=== PATIENT | female | born 1950 | race Caucasian/White ===

== ENCOUNTER 2017-03-13 15:27 | Inpatient (IN) | payer MEDICARE, BC ==
[2017-03-13] MEDS ORDERED: Ondansetron 4 MG/2 ML SDV IV PRN (16:19)
[2017-03-13] MEDS ORDERED: Temazepam 15 MG Cap PO PRN (16:19)
[2017-03-13] MEDS ORDERED: Docusate Sodium 100 MG Cap PO PRN (16:19)
[2017-03-13] MEDS ORDERED: fentaNYL 100 MCG/2 ML SDV IVPUSH PRN (16:19)
[2017-03-13] MEDS ORDERED: Albuterol 8 GM Inhaler INH PRN (16:28)
[2017-03-13] MEDS ORDERED: CAFFEINE PO PRN (16:28)
[2017-03-13] MEDS ORDERED: BUTALBITAL PO PRN (16:28)
[2017-03-13] MEDS ORDERED: Formoterol/Mometasone 200-5 MCG 8.8 GM Inhaler IH PRN (16:28)
[2017-03-13] MEDS ORDERED: ASPIRIN PO PRN (16:28)
[2017-03-13] MEDS ORDERED: Iopamidol 612 MG/ML 100 ML Bottle IVPUSH ONE (16:33)
[2017-03-13] MEDS ORDERED: Levofloxacin/Dextrose 5%-Water 500 MG in Premix Bag 1 BAG IV SCH (17:00)
[2017-03-13] MEDS: Lactated Ringers 1,000 ML IV SCH (17:03)
[2017-03-13] MEDS: Acetaminophen 325 MG Tab PO PRN (17:03)
[2017-03-13] MEDS: metroNIDAZOLE/Normal Saline 500 MG in Premix Bag 1 BAG IV SCH (17:04)
[2017-03-13] MEDS ORDERED: diphenhydrAMINE 25 MG Cap PO SCH (20:00)
[2017-03-13] MEDS ORDERED: Enoxaparin 30 MG/0.3 ML Syringe SUBCUT SCH (20:00)
[2017-03-13] MEDS ORDERED: Acetaminophen 325 MG Tab PO SCH (20:00)
[2017-03-13] MEDS ORDERED: Simvastatin 20 MG Tab PO SCH (20:00)
[2017-03-13] MEDS: Albuterol/Ipratropium 3.0-0.5 MG/3 ML Neb Soln NEB SCH (21:28)
[2017-03-14] MEDS: metroNIDAZOLE/Normal Saline 500 MG in Premix Bag 1 BAG IV SCH ×2 (00:10→07:30)
[2017-03-14] MEDS: Lactated Ringers 1,000 ML IV SCH (03:53)
[2017-03-14] MEDS: Acetaminophen 325 MG Tab PO PRN (07:41)
[2017-03-14] MEDS ORDERED: Hydrochlorothiazide 12.5 MG Cap PO SCH (08:00)
[2017-03-14] MEDS ORDERED: Non-Formulary Medication 1 Each (Losartan/Hydrochlorothiazide 1 TAB) PO SCH (08:00)
[2017-03-14] MEDS ORDERED: Potassium Gluconate (99 MG) 2 MEQ Tab PO SCH (08:00)
[2017-03-14] MEDS ORDERED: Losartan 25 MG Tab PO SCH (08:00)
--- NOTE | 2017-03-14 10:04 | PN ---
DATE: 03/14/2017 S: Mildred Ying came in with moderately severe abdominal pain, vomiting. I made the diagnosis of probable diverticulitis. I did do a CT scan on her last night, which showed some diverticula, but no significant diverticulitis. O: On examination today, abdomen is soft, bowel sounds are back to normal. No further nausea or vomiting. ASSESSMENT: PROBABLE MESENTERIC ADENITIS. P: Continue IV antibiotics and re-evaluate her today. IVETTE/KATERINE /[id number]
[2017-03-14] MEDS: Albuterol/Ipratropium 3.0-0.5 MG/3 ML Neb Soln NEB SCH (10:33)
[2017-03-14 12:27] VITALS: BP 113/71
--- NOTE | 2017-03-15 07:02 | DISCH ---
HOSPITAL COURSE: Mildred Ying came in with moderate to severe abdominal pain, nausea, vomiting yesterday with diagnosis of probable diverticulitis, was admitted to the hospital and started on IV antibiotics. Responded dramatically. At the time of discharge, bowel sounds were good. They were hypoactive yesterday. She was eating a regular diet and felt good. CT of the abdomen showed no diverticulitis and showed significant peripheral vascular disease. So I think she probably had a mesenteric adenitis that is now resolving rapidly from IV antibiotics. DISPOSITION: The patient now discharged home. DISCHARGE INSTRUCTIONS: We will see her back in the clinic in 1 week. DISCHARGE MEDICATIONS: Home medications plus Ceftin 250 p.o. b.i.d. for 7 days. DISCHARGE DIAGNOSIS: 1. MESENTERIC ADENITIS. 2. HYPERLIPIDEMIA. 3. HYPERTENSION. VENITA /[id number]
== END 2017-03-14 14:45 | disposition home or self-care (01) | DRG 394 ==
LOC: CC.MS 15:27 → UNDOADMIN 15:27 → CC.MS 16:19
PROVIDERS: ADMIT General Practice; ATTEND General Practice
DX: I88.0 Nonspecific mesenteric lymphadenitis (principal); K57.92 Diverticulitis of intestine, part unspecified, without perforation or abscess without bleeding; I10 Essential (primary) hypertension; E78.00 Pure hypercholesterolemia, unspecified; E04.1 Nontoxic single thyroid nodule; Z79.899 Other long term (current) drug therapy
CPT/HCPCS: 36415; 74177; 80048; 80053; 81001; 83735; 84443; 85025; 86140; 94640; A9270-GY; J1650; J1956; J2405; J7120; Q9967

== ENCOUNTER 2019-01-03 07:36 | Emergency (ER) | payer MEDICARE, BC ==
[2019-01-03 07:42] VITALS: PULSE 79
[2019-01-03 08:05] VITALS: BP 150/95
[2019-01-03] MEDS ORDERED: Diphtheria,Pertussis(Acell),Tetanus Vaccine 0.5 ML Syringe IM ONE (08:05)
--- NOTE | 2019-01-03 08:19 | EDM.PDOC ---
ED HPI GENERAL MEDICAL PROBLEM - General Chief Complaint: Laceration Stated Complaint: WOUND Time Seen by Provider: 01/03/19 08:10 Source of Information: Reports: Patient History Limitations: Reports: No Limitations - History of Present Illness INITIAL COMMENTS - FREE TEXT/NARRATIVE: Patient presents to ER with a laceration/puncture wound to her right index finger. Was cutting up watermelon and slipped with the knife. Has small puncture wound but knife did cut completely through the tip. Patient denies much pain with this. Has good range of motion. She questions if possible to avoid sutures. Due to update Tdap Onset: Today, Sudden Duration: Minutes: Location: Reports: Upper Extremity, Right Quality: Reports: Ache, Dull Severity: Mild Context: Reports: Trauma Associated Symptoms: Reports: No Other Symptoms Treatments INSPECTOR SHELLS: Reports: Dressing(s) Right Finger-Index Pain Score (Numeric/FACES): 2 - Related Data Allergies Allergy/AdvReac Type Severity Reaction Status Date / Time cefuroxime axetil tabs Allergy Nausea Uncoded 01/03/19 07:43 Home Meds: Home Meds Acetaminophen/Diphenhydramine [Tylenol Pm Ex-Strength Caplet] 1 tab PO BEDTIME 06/16/16 [History] Albuterol [Ventolin 2 MG/5 ML] 2 puff IH Q4H PRN 06/16/16 [History] Budesonide/Formoterol Fumarate [Symbicort 160-4.5 Mcg Inhaler] 2 puff IH BID [History] Cholecalciferol (Vitamin D3) [Vitamin D3] 5,000 unit PO DAILY 06/16/16 [History] Ipratropium/Albuterol Sulfate [Iprat-Albut 0.5-3(2.5) MG/3 ML] 1 vial NEB BID [History] Multivitamin [Multi-Day Vitamins] 1 each PO DAILY 06/16/16 [History] Potassium 75 mg PO DAILY 06/16/16 [History] Ubidecarenone [Coq-10] 300 mg PO DAILY 06/16/16 [History] Butalbital/Aspirin/Caffeine [Fiorinal 50-325-40 MG] 1 - 2 tab PO TID PRN [History] L.acidoph,Paracasei, B.lactis [Probiotic] 1 caplet PO DAILY 03/13/17 [History] Losartan/Hydrochlorothiazide [Losartan-HCTZ 50-12.5 MG] 1 tab PO DAILY 03/13/17 [History] Alendronate Sodium 70 mg PO WEEKLY 11/02/17 [History] Ascorbic Acid [Vitamin C] 1,000 mg PO DAILY 11/02/17 [History] Magnesium Oxide/Mag AA Chelate [Magnesium] 300 mg PO BEDTIME 11/02/17 [History] Rosuvastatin Calcium 20 mg PO DAILY 11/02/17 [History] Past Medical History Cardiovascular History: Reports: High Cholesterol, Hypertension Respiratory History: Reports: Bronchitis, Recurrent, COPD Gastrointestinal History: Reports: Diverticulosis, PUD Genitourinary History: Reports: None Neurological History: Reports: None Endocrine/Metabolic History: Reports: None Hematologic History: Reports: Blood Transfusion(s) - Infectious Disease History Infectious Disease History: Reports: MRSA - Past Surgical History Cardiovascular Surgical History: Reports: None Respiratory Surgical History: Reports: None GI Surgical History: Reports: Cholecystectomy, Colonoscopy, EGD, Small Bowel Other GI Surgeries/Procedures: cauterization of ulcer Female Surgical History: Reports: Breast Reduction, Tubal Ligation Endocrine Surgical History: Reports: Thyroid Biopsy Neurological Surgical History: Reports: Other (See Below) Other Neurological Surgeries/Procedures: cyst in spinal canal, surgery to remove cyst Social & Family History - Family History Family Medical History: Noncontributory - Tobacco Use Smoking Status *Q: Former Smoker Used Tobacco, but Quit: Yes Month/Year Tobacco Last Used: 8 yrs ago - Caffeine Use Caffeine Use: Reports: Coffee - Recreational Drug Use Recreational Drug Use: No ED ROS GENERAL - Review of Systems Review Of Systems: ROS reveals no pertinent complaints other than HPI. ED EXAM, SKIN/RASH Exam: See Below Exam Limited By: No Limitations General Appearance: Alert, WD/WN, No Apparent Distress Neurological: Alert, Oriented Skin: Warm, Wound/Incision Location, Skin: Upper Extremity, Right Characteristics: Linear ED SKIN PROCEDURES - Laceration/Wound Repair Right Digit - 2nd (Index) Lac/Wound length In cm: 0.7 Appearance: Subcutaneous, Linear Distal NVT: Neuro & Vascular Intact Skin Prep: Other (saf-clens) Exploration/Debridement/Repair: Wound Explored Closed with: Dermabond, Steri-Strips Sterile Dressing Applied: Provider Tetanus Status Addressed: Yes Complications: No Course - Vital Signs Last Recorded V/S: Last Vital Signs Temp 97.9 F 01/03/19 07:38 Pulse 79 01/03/19 07:38 Resp 16 01/03/19 07:38 BP 150/95 H 01/03/19 08:04 Pulse Ox 98 01/03/19 07:38 - Orders/Labs/Meds Orders: Active Orders 24 hr Category Date Time Status Vaccines to be Administered [RC] PER UNIT ROUTINE Care 01/03/19 08:05 Active Meds: Medications Discontinued Medications Generic Name Dose Route Start Last Admin Trade Name Evette PRN Reason Stop Dose Admin Diphtheria/Tetanus/Acell Pertussis 0.5 ml 01/03/19 08:05 01/03/19 08:24 Adacel IM 01/03/19 08:06 0.5 ml .ONCE ONE Administration Departure - Departure Time of Disposition: 08:18 Disposition: Home, Self-Care 01 Condition: Good Clinical Impression: Broken skin, Laceration of finger - Discharge Information *PRESCRIPTION DRUG MONITORING PROGRAM REVIEWED*: No *COPY OF PRESCRIPTION DRUG MONITORING REPORT IN PATIENT KATTY: No Instructions: Puncture Wound, [id number] Forms: ED Department Discharge Additional Instructions: 1. Keep wound clean and dry 2. Allow steri strips to fall off 3. Watch for symptoms of infection ie. redness, increased pain, drainage 4. Follow up if concerns. - My Orders Last 24 Hours: My Active Orders 01/03/19 08:05 Vaccines to be Administered [RC] PER UNIT ROUTINE - Assessment/Plan Last 24 Hours: My Active Orders 01/03/19 08:05 Vaccines to be Administered [RC] PER UNIT ROUTINE
== END 2019-01-03 08:32 | disposition home or self-care (01) ==
LOC: CC.ED 07:36
DX: S61.210A Laceration without foreign body of right index finger without damage to nail, initial encounter (principal); Z23 Encounter for immunization; Z87.891 Personal history of nicotine dependence; Z79.899 Other long term (current) drug therapy; E78.00 Pure hypercholesterolemia, unspecified; I10 Essential (primary) hypertension; W26.0XXA Contact with knife, initial encounter
CPT/HCPCS: 12001; 90471; 90715; 99282; 99283

== ENCOUNTER → 2019-04-05 | Day surgery (SDC) | payer MEDICARE, BC ==
[~2019-04-05] MED LIST: Glycopyrrolate 0.2 MG/ML SDV IVPUSH ONE; Lactated Ringers 1,000 ML IV SCH; Propofol 200 MG/20 ML SDV IV ONE
[2019-04-05 10:17] VITALS: BP 146/86; PULSE 86
--- NOTE | 2019-04-05 14:47 | OR ---
DATE OF OPERATION: 04/05/2019 PREOPERATIVE DIAGNOSIS: EPIGASTRIC PAIN AND GASTROESOPHAGEAL REFLUX DISEASE. POSTOPERATIVE DIAGNOSIS: EPIGASTRIC PAIN AND GASTROESOPHAGEAL REFLUX DISEASE. SURGEON: Demetrius Morrison MD PROCEDURE: EGD WITH BIOPSIES X3, JANETH. ANESTHESIA: MAC. COMPLICATIONS: None. SPECIMEN: 1. Antral biopsy x2. 2. JANETH. 3. Distal esophageal biopsy x1. FINDINGS: 1. Full-length EGD. 2. Mild and chronic appearing antral gastritis without ulceration or erosion. 3. Spontaneous GERD without any obvious esophagitis, Johnson's changes, or stricturing. RECOMMENDATIONS: The patient's symptoms seem to have gotten worse and she started alendronate. I would recommend stopping her Fosamax for now and following up with Dr. Herrera for path reports. INDICATIONS: The patient has been having ongoing and worsening dyspepsia over the last 6 months, really severe over the last month or 2 in the form of epigastric discomfort, dyspepsia, and reflux. Dr. Herrera sent her for diagnostic EGD. DESCRIPTION OF PROCEDURE: The patient was prepped and draped, placed in the left lateral decubitus position. A lubricated Olympus gastroscope was inserted over a bit, advanced to cricopharyngeus area, and easily intubated in the esophagus. The esophageal lining was benign in its entire course. The Z-line is crisp and sharp at about 39 cm. There is no hernia present. There was some spontaneous reflux. No obvious distal esophagitis, stricturing, ulceration, or Johnson's changes. There was 1 short segment that may be an early Johnson's change. I did do a biopsy of it. The scope was advanced into the stomach through the pylorus, into the second portion of the duodenum. This and the duodenal bulb were benign. The scope was brought back into the stomach and retroflexed. The upper fundus and cardia were completely unremarkable. Upon straightening, the rest of the fundus was benign. The antrum shows changes of chronic gastritis. There is no acute ulceration, erosion, or active lesions. Two biopsies were taken along with CLOtest. Air was then suctioned. Scope was removed without complication. JASON/KATERINE /[id number] CC: Uri Herrera MD [address] [place] [address]
== END ==
LOC: CC.SDS 08:30
PROVIDERS: ATTEND Family Medicine
DX: K21.0 Gastro-esophageal reflux disease with esophagitis (principal); K29.50 Unspecified chronic gastritis without bleeding; K31.89 Other diseases of stomach and duodenum; I25.10 Atherosclerotic heart disease of native coronary artery without angina pectoris; R19.4 Change in bowel habit; Z87.891 Personal history of nicotine dependence; Z79.899 Other long term (current) drug therapy
CPT/HCPCS: 00731; 43239; 87081; J2704; J3490; J7120

== ENCOUNTER → 2019-11-01 | Day surgery (SDC) | payer MEDICARE, BC ==
[~2019-11-01] MED LIST changes: -Glycopyrrolate 0.2 MG/ML SDV IVPUSH ONE
[2019-11-01 12:41] VITALS: BP 142/97; PULSE 72
--- NOTE | 2019-11-01 13:08 | OR ---
DATE OF OPERATION: 11/01/2019 PREOPERATIVE DIAGNOSIS: GASTROESOPHAGEAL REFLUX DISEASE WITH DYSPHAGIA. POSTOPERATIVE DIAGNOSIS: GASTROESOPHAGEAL REFLUX DISEASE WITH DYSPHAGIA. SURGEON: Demetrius Morrison MD PROCEDURE: FULL-LENGTH DIAGNOSTIC EGD. ANESTHESIA: MAC. COMPLICATIONS: None. SPECIMEN: None. FINDINGS: 1. Full-length EGD. 2. Small hiatal hernia with spontaneous GERD. 3. No distal esophagitis, stricturing, ulceration, or Johnson's changes. RECOMMENDATIONS: Aggressive proton pump therapy for symptomatic control. INDICATIONS: The patient has been having some occasional dysphagia, it sounds more like upper chest cricopharyngeal area. Dr. Herrera sent her for diagnostic EGD. DESCRIPTION OF PROCEDURE: The patient was prepped and draped, placed in the left lateral decubitus position. A lubricated Olympus gastroscope was inserted over a bit, advanced to cricopharyngeus area and easily intubated in the esophagus. Saw no real signs of prominence of the cricopharyngeus region. The scope easily was intubated in the esophagus, passed distally. The esophageal lining was benign in its entire course. The Z-line was crisp and sharp around 38 cm. There was a small hernia present with some spontaneous reflux, but no distal esophagitis, stricturing, ulceration, or Johnson's changes. The scope was advanced into the stomach, through the pylorus, and into the second portion of the duodenum. This and the duodenal bulb were benign. The scope was brought back into the stomach and retroflexed. At this time, the patient got significantly tachycardic, she had a tachy dysrhythmia up to the 160s. We straightened the scope, took a very adequate but brief look at the antrum and fundus, and felt it was for the patient's safety safer to remove the scope. Briefly, though I did not see any obvious lesions in the stomach such as signs of peptic ulcer disease, polyp, mass, or other lesions. No CLOtest was obtained. Air was suctioned from the stomach and the scope was removed safely without complication. The patient was stable in the recovery room. JASON/KATERINE /[id number]
== END ==
LOC: CC.SDS 09:51
PROVIDERS: ATTEND Family Medicine
DX: K21.9 Gastro-esophageal reflux disease without esophagitis (principal); K44.9 Diaphragmatic hernia without obstruction or gangrene; R00.0 Tachycardia, unspecified; I10 Essential (primary) hypertension; E78.5 Hyperlipidemia, unspecified; J44.9 Chronic obstructive pulmonary disease, unspecified; Z87.891 Personal history of nicotine dependence; E78.00 Pure hypercholesterolemia, unspecified; Z88.1 Allergy status to other antibiotic agents; Z79.899 Other long term (current) drug therapy; Z79.51 Long term (current) use of inhaled steroids
CPT/HCPCS: 00731; 43235; J2704; J7120

== ENCOUNTER 2020-07-02 08:47 | Emergency (ER) | payer MEDICARE, BC ==
[2020-07-02] MEDS ORDERED: cloNIDine 0.1 MG Tab PO STA (09:16)
--- NOTE | 2020-07-02 09:18 | EDM.PDOC ---
ED HPI GENERAL MEDICAL PROBLEM - General Chief Complaint: General Stated Complaint: LT ARM PAIN Time Seen by Provider: 07/02/20 09:05 Source of Information: Reports: Patient, RN History Limitations: Reports: No Limitations - History of Present Illness INITIAL COMMENTS - FREE TEXT/NARRATIVE: States that she hasn't felt well since last evening. Feels jittery. BP has been up. Today she had some pain in the left shoulder and tingling into left arm. No midsternal chest pain. No nausea. No headache or unilateral weakness. States that she didn't feel well today. No headaches. Has had some palpitations. No cough or SOB with it. Onset Date: 07/01/20 Location: Reports: Generalized - Related Data Allergies Allergy/AdvReac Type Severity Reaction Status Date / Time cefuroxime axetil tabs AdvReac Nausea Uncoded 07/02/20 09:03 Home Meds: Home Meds Albuterol [Ventolin 2 MG/5 ML] 2 puff IH Q4H PRN 06/16/16 [History] Budesonide/Formoterol Fumarate [Symbicort 160-4.5 Mcg Inhaler] 2 puff IH BID 06/16/16 [History] Cholecalciferol (Vitamin D3) [Vitamin D3] 5,000 unit PO DAILY 06/16/16 [History] Potassium 99 mg PO DAILY 06/16/16 [History] Ubidecarenone [Coq-10] 100 mg PO DAILY 06/16/16 [History] L.acidoph,Paracasei, B.lactis [Probiotic] 1 caplet PO DAILY 03/13/17 [History] Ascorbic Acid [Vitamin C] 1,000 mg PO DAILY 11/02/17 [History] Rosuvastatin Calcium 20 mg PO DAILY 11/02/17 [History] Omeprazole Magnesium [Prilosec Otc] 20 mg PO DAILY 04/03/19 [History] Psyllium Husk (With Sugar) [Metamucil Powder] 1 tsp PO DAILY PRN 04/03/19 [History] norethindrone ac-eth estradioL [Norethind-Eth Estrad 0.5-2.5] 1 tab PO DAILY 04/03/19 [History] Albuterol/Ipratropium [DuoNeb 3.0-0.5 MG/3 ML] 1 dose INH BID 10/30/19 [History] Doxycycline Hyclate 100 mg PO BID 07/02/20 [History] Fluticasone/Vilanterol [Breo Ellipta 200-25 MCG Inhalation Kit] 1 puff INH DAILY PRN 07/02/20 [History] Ipratropium/Albuterol Sulfate [Iprat-Albut 0.5-3(2.5) MG/3 ML] 1 vial NEB BID 07/02/20 [History] Magnesium Citrate 500 mg PO DAILY 07/02/20 [History] Melatonin 10 mg PO DAILY 07/02/20 [History] [place]-3 Fatty Acids/Fish Oil [Fish Oil Pearls Softgel] 1 each PO DAILY 07/02/20 [History] lisinopriL [Lisinopril] 20 mg PO BID 07/02/20 [History] predniSONE 40 tab PO DAILY 07/02/20 [History] Past Medical History Cardiovascular History: Reports: High Cholesterol, Hypertension Respiratory History: Reports: Bronchitis, Recurrent, COPD Gastrointestinal History: Reports: Diverticulosis, PUD Genitourinary History: Reports: None Neurological History: Reports: None Endocrine/Metabolic History: Reports: None Hematologic History: Reports: Blood Transfusion(s) - Infectious Disease History Infectious Disease History: Reports: MRSA - Past Surgical History Cardiovascular Surgical History: Reports: None Respiratory Surgical History: Reports: None GI Surgical History: Reports: Cholecystectomy, Colonoscopy, EGD, Small Bowel Other GI Surgeries/Procedures: cauterization of ulcer Female Surgical History: Reports: Breast Reduction, Tubal Ligation Endocrine Surgical History: Reports: Thyroid Biopsy Neurological Surgical History: Reports: Other (See Below) Other Neurological Surgeries/Procedures: cyst in spinal canal, surgery to remove cyst Social & Family History - Family History Family Medical History: No Pertinent Family History - Caffeine Use Caffeine Use: Reports: Coffee - Living Situation & Occupation Living situation: Reports: , with Spouse Occupation: Retired ED ROS GENERAL - Review of Systems Review Of Systems: See Below Constitutional: Denies: Fever, Chills HEENT: Reports: No Symptoms Respiratory: Denies: Shortness of Breath, Cough Cardiovascular: Reports: Blood Pressure Problem, Lightheadedness GI/Abdominal: Reports: No Symptoms Musculoskeletal: Reports: No Symptoms Skin: Reports: No Symptoms Neurological: Reports: Other ("I just don't feel right"). Denies: Dizziness, Headache, Numbness, Tingling Psychiatric: Denies: Anxiety ED EXAM, GENERAL - Physical Exam Exam: See Below Exam Limited By: No Limitations General Appearance: Alert, WD/WN, No Apparent Distress Ears: Normal External Exam, Normal TMs Throat/Mouth: Normal Inspection, Normal Oropharynx, No Airway Compromise Head: Atraumatic, Normocephalic Neck: Normal Inspection, Supple Respiratory/Chest: No Respiratory Distress, Lungs Clear, Normal Breath Sounds Cardiovascular: Regular Rate, Rhythm, No Edema GI/Abdominal: Normal Bowel Sounds, Soft, Non-Tender Back Exam: Normal Inspection, Full Range of Motion Extremities: Normal Inspection, Normal Range of Motion, No Pedal Edema, Normal Capillary Refill Neurological: Alert, Oriented Psychiatric: Normal Affect Skin Exam: Warm, Dry, Intact Course - Vital Signs Last Recorded V/S: Last Vital Signs Temp 98.7 F 07/02/20 12:30 Pulse 78 07/02/20 12:30 Resp 18 07/02/20 12:30 BP 138/88 07/02/20 12:30 Pulse Ox 95 07/02/20 12:30 - Orders/Labs/Meds Labs: Laboratory Tests 07/02/20 07/02/20 07/02/20 Range/Units 09:17 09:17 09:17 WBC 8.4 (5.0-10.0) 10^3/uL RBC 4.54 (4.00-5.50) 10^6/uL Hgb 14.2 (12.0-16.0) g/dL Hct 42.3 (37.0-47.0) % MCV 93.2 (82.0-94.0) fL MCH 31.3 (27.0-32.0) pg MCHC 33.6 (33.0-38.0) g/dL RDW Coeff of Monty 12.2 (11.0-15.0) % Plt Count 266 (150-400) 10^3/uL Neut % (Auto) 64.3 (35-85) % Lymph % (Auto) 25.4 (10-55) % Garrard % (Auto) 9.3 (0-16) % Eos % (Auto) 0.8 (0-5) % Baso % (Auto) 0.2 (0-3) % Neut # (Auto) 5.39 (1.80-7.00) 10^3/uL Lymph # (Auto) 2.13 (1.00-4.80) 10^3/uL Garrard # (Auto) 0.78 (0.00-0.80) 10^3/uL Eos # (Auto) 0.07 (0.00-0.45) 10^3/uL Baso # (Auto) 0.02 10^3/uL PT 10.2 (9.7-12.3) SEC INR 1.01 (0.92-1.18) APTT 23.8 (23.2-32.3) SEC Sodium 140 (136-145) mEq/L Potassium 4.1 (3.5-5.0) mEq/L Chloride 104 (98-106) mEq/L Carbon Dioxide 28 (21-32) mmol/L BUN 11 (7-18) mg/dL Creatinine 0.9 (0.6-1.0) mg/dL Est Cr Clr Drug Dosing 53.09 mL/min Estimated GFR (MDRD) > 60 (>=60) mL/min Glucose 98 (75-99) mg/dL Calcium 9.6 (8.4-10.1) mg/dL Total Bilirubin 0.4 (0.0-1.0) mg/dL AST 18 (15-37) U/L ALT 25 (12-78) U/L Alkaline Phosphatase 49 (46-116) U/L Lactate Dehydrogenase 179 (100-190) U/L Creatine Kinase 69 (21-215) U/L Troponin I < 0.017 (0.00-0.06) ng/mL Total Protein 7.8 (6.4-8.2) g/dL Albumin 4.0 (3.4-5.0) g/dL Meds: Medications Discontinued Medications Generic Name Dose Route Start Last Admin Trade Name Freq PRN Reason Stop Dose Admin Amlodipine Besylate 5 mg 07/02/20 11:12 07/02/20 11:28 Norvasc PO 07/02/20 11:13 5 mg ONETIME ONE Administration Clonidine HCl 0.1 mg 07/02/20 09:16 07/02/20 09:19 Catapres PO 07/02/20 09:17 0.1 mg NOW STA Administration - Re-Assessments/Exams Free Text/Narrative Re-Assessment/Exam: 07/02/20 1230 BP is now controlled and she feels like she is back to normal. will discharge on the amlodipine and recheck in clinic next week for BP check. REcheck sooner if not feeling well. Departure - Departure Time of Disposition: 13:00 Disposition: Home, Self-Care 01 Clinical Impression: Hypertension Qualifiers: Hypertension type: essential hypertension Qualified Code(s): I10 - Essential (primary) hypertension - Discharge Information *PRESCRIPTION DRUG MONITORING PROGRAM REVIEWED*: Not Applicable *COPY OF PRESCRIPTION DRUG MONITORING REPORT IN PATIENT KATTY: Not Applicable Referrals: Uri Herrera MD [Primary Care Provider] - Forms: ED Department Discharge Additional Instructions: Start amlodipine 5 mg daily starting tomorrow as you received first dose in ER recheck in clinic next week to monitor if controlling the BP Sepsis Event Note (ED) - Evaluation Sepsis Screening Result: No Definite Risk - Problem List & Annotations (1) Hypertension SNOMED Code(s): 34854431 Code(s): I10 - ESSENTIAL (PRIMARY) HYPERTENSION Status: Acute Priority: High Qualifiers: Hypertension type: essential hypertension Qualified Code(s): I10 - Essential (primary) hypertension - Problem List Review Problem List Initiated/Reviewed/Updated: Yes
[2020-07-02 09:37] LABS: CHLORIDE,CL 104 mEq/L (98-106); SODIUM,NA 140 mEq/L (136-145)
[2020-07-02 09:38] LABS: PTT,PARTIAL THROMBOPLSTIN TIME 23.8 SEC (23.2-32.3)
[2020-07-02] MEDS ORDERED: amLODIPine 2.5 MG Tab PO ONE (11:12)
[2020-07-02 13:31] VITALS: BP 138/88; PULSE 78
== END 2020-07-02 13:10 | disposition home or self-care (01) ==
LOC: CC.ED 08:47 → SUPCPDRO 08:47 → CC.ED 13:10
DX: I10 Essential (primary) hypertension (principal); E78.00 Pure hypercholesterolemia, unspecified; J44.9 Chronic obstructive pulmonary disease, unspecified; Z88.1 Allergy status to other antibiotic agents; Z79.899 Other long term (current) drug therapy
CPT/HCPCS: 36415; 71046; 80053; 82550; 83615; 84484; 85025; 85610; 85730; 93005; 99284; 99285-25; A9270-GY

== ENCOUNTER 2022-02-18 06:54 | Emergency (ER) | payer MEDICARE, BC ==
[2022-02-18] MEDS ORDERED: diphenhydrAMINE 50 MG/ML SDV IVPUSH ONE (06:59)
[2022-02-18] MEDS ORDERED: methylPREDNISolone Sodium Succinate 125 MG/2 ML SDV IVPUSH STA (06:59)
[2022-02-18 07:27] VITALS: BP 152/102; PULSE 82
== END 2022-02-18 08:05 | disposition home or self-care (01) ==
LOC: CC.ED 06:54
DX: T78.3XXA Angioneurotic edema, initial encounter (principal); E78.00 Pure hypercholesterolemia, unspecified; I10 Essential (primary) hypertension; J44.9 Chronic obstructive pulmonary disease, unspecified; Z88.1 Allergy status to other antibiotic agents; Z79.899 Other long term (current) drug therapy
CPT/HCPCS: 96374; 96375; 99284; 99284-25; J1200; J2930

== ENCOUNTER → 2022-03-04 | Day surgery (SDC) | payer MEDICARE, BC ==
[~2022-03-04] MED LIST changes: +Ketamine 200 MG/20 ML MDV ONE; -Propofol 200 MG/20 ML SDV IV ONE; +Propofol 200 MG/20 ML SDV ONE; +fentaNYL 50 MCG/ML SDV ONE
[2022-03-04 09:15] VITALS: BP 105/67; PULSE 77
== END ==
LOC: CC.SDS 07:30
PROVIDERS: ATTEND Family Medicine
DX: D12.2 Benign neoplasm of ascending colon (principal); D12.3 Benign neoplasm of transverse colon; K57.30 Diverticulosis of large intestine without perforation or abscess without bleeding; E78.5 Hyperlipidemia, unspecified; E55.9 Vitamin D deficiency, unspecified; I10 Essential (primary) hypertension; J44.9 Chronic obstructive pulmonary disease, unspecified; Z90.49 Acquired absence of other specified parts of digestive tract; Z98.890 Other specified postprocedural states; Z88.8 Allergy status to other drugs, medicaments and biological substances; Z79.899 Other long term (current) drug therapy
CPT/HCPCS: 00811; 45380; 88305; J2704; J3010; J7120

== ENCOUNTER 2023-12-06 21:38 | Emergency (ER) | payer MEDICARE, BC ==
[2023-12-06 21:45] VITALS: BP 149/92; PULSE 110
[2023-12-06 22:00] LABS: BASOPHILS ABSOLUTE AUTO 0.06 10^3/uL (0.00-0.50); BASOPHILS PERCENT AUTO 0.4 % (0-1); EOSINOPHILS ABSOLUTE AUTO 0.09 10^3/uL (0.00-1.50); EOSINOPHILS PERCENT AUTO 0.7 % (0-6); HEMATOCRIT 42.3 % (37.0-47.0); HEMOGLOBIN 13.9 g/dL (12.0-16.0); IMMATURE GRAN ABSOLUTE AUTO 0.01 10^3/uL (0.00-0.49); IMMATURE GRAN PERCENT AUTO 0.1 % (0.0-4.9); LYMPHOCYTES ABSOLUTE AUTO 1.54 10^3/uL (0.60-5.00); LYMPHOCYTES PERCENT AUTO 11.5 % (24-44); MEAN CORPUSCULAR HGB CONC 32.9 g/dL (32.0-36.0); MEAN CORPUSCULAR VOLUME 94.2 fL (83.0-97.0); MONOCYTES ABSOLUTE AUTO 0.59 10^3/uL (0.00-1.50); MONOCYTES PERCENT AUTO 4.4 % (0-10); NEUTROPHILS ABSOLUTE AUTO 11.09 x10^3/uL (1.80-8.00); NEUTROPHILS PERCENT AUTO 82.9 % (41-71); PLATELET COUNT,PLT 275 10^3/uL (150-400); RED BLOOD CELL COUNT 4.49 x10^6/uL (4.00-5.50); WHITE BLOOD CELL COUNT,WBC 13.4 10^3/uL (4.0-11.0)
[2023-12-06] MEDS: Albuterol/Ipratropium 3.0-0.5 MG/3 ML Neb Soln NEB ONE (22:00)
[2023-12-06 22:14] LABS: ALANINE AMINOTRANSFERASE,ALT 39 U/L (12-78); ALBUMIN 3.7 g/dL (3.4-5.0); ALKALINE PHOSPHATASE 70 U/L (46-116); ASPARTATE AMNIOTRANSFERASE,AST 23 U/L (15-37); BILIRUBIN TOTAL 0.3 mg/dL (0.0-1.0); BLOOD UREA NITROGEN,BUN 18 mg/dL (7-18); CALCIUM 9.6 mg/dL (8.4-10.1); CARBON DIOXIDE,CO2 28 mmol/L (21-32); CHLORIDE,CL 103 mEq/L (98-106); CREATININE 1.1 mg/dL (0.6-1.0); EST CRCL DRUG DOSING (CG) 32.72 mL/min; GLUCOSE RANDOM 138 mg/dL (75-99); MAGNESIUM 1.7 mg/dL (1.8-2.4); POTASSIUM,K 3.8 mEq/L (3.5-5.0); PROTEIN TOTAL,TP 7.3 g/dL (6.4-8.2); SODIUM,NA 141 mEq/L (136-145)
[2023-12-06 22:15] LABS: C-REACTIVE PROTEIN < 0.50 mg/dL (<=0.50); ESTIMATED GFR 53 mL/min (>=60)
[2023-12-06] MEDS: Azithromycin 250 MG Tab PO ONE (22:41)
== END 2023-12-06 22:45 | disposition home or self-care (01) ==
LOC: CC.ED 21:38
DX: J44.1 Chronic obstructive pulmonary disease with (acute) exacerbation (principal); I10 Essential (primary) hypertension; E78.00 Pure hypercholesterolemia, unspecified; Z90.49 Acquired absence of other specified parts of digestive tract; Z87.891 Personal history of nicotine dependence; Z79.899 Other long term (current) drug therapy; Z79.2 Long term (current) use of antibiotics
CPT/HCPCS: 36415; 71045; 80053; 83735; 84484; 85025; 86140; 93005; 94640; 99285; A9270; J7620-GY